=== PATIENT | female | born 1990 | race Two or more races ===

== ENCOUNTER 2020-05-15 13:31 | Inpatient (IN) | payer OTHER ==
--- OUTSIDE RECORDS SUMMARY | 2020-05-15 13:36 | XMS ---
:1990 Author Organization [facility] Support Name Relationship Address Phone UE Unavailable Unavailable Unavailable CRISTEL HELTON SELF / SAME PATIENT [address] [place] [address] Re-disclosure Warning The records that you are about to access may contain information from federally- assisted alcohol or drug abuse programs. If such information is present, then the following federally mandated warning applies: This information has been disclosed to you from records protected by federal confidentiality rules (42 CFR part 2). The federal rules prohibit you from making any further disclosure of this information unless further disclosure is expressly permitted by the written consent of the person to whom it pertains or as otherwise permitted by 42 CFR part 2. A general authorization for the release of medical or other information is NOT sufficient for this purpose. The Federal rules restrict any use of the information to criminally investigate or prosecute any alcohol or drug abuse patient.The records that you are about to access may contain highly sensitive health information, the redisclosure of which is protected by Article 27-F of the [facility] Public Health law. If you continue you may haveaccess to information: Regarding HIV / AIDS; Provided by facilities licensed or operated by the [facility] Office of Mental Health; or Provided by the [facility] Office for People With Developmental Disabilities. If such information is present, then the following [facility] mandated warning applies: This information has been disclosed to you from confidential records which are protected by state law. State law prohibits you from making any further disclosure of this information without the specific written consent of the person to whom it pertains, or as otherwise permitted by law. Any unauthorized further disclosure in violation of state law may result in a fine or detention sentence or both. A general authorization for the release of medical or other information is NOT sufficient authorization for further disclosure. 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
--- NOTE | 2020-05-15 16:11 | BHS.RME ---
Substance Use & Tx History - Substance Use History Alcohol Substance amount: 1-2 pints of vodka, 3-4 beers Frequency of use: Daily Substance route: Oral Date of Last Use: 05/14/20 - Last Treatment Date of last treatment: 1st time Physical/Psych/Mental Status - Behavior General Behavior: Increased activity (restlessness, agitation) Eye Contact: Normal Other Behaviors: Mannerisms - Cooperativeness Cooperativeness: Cooperative - Thinking Thought Processes: Tight, Logical, Goal Directed Thought content: Future oriented - Physical Health Problems Is patient presently having any pain?: No Does patient presently have any injuries (include location): No Does patient currently have a fever: No CIWA Nausea/Vomitin Muscle Tremors: 2 Anxiety: 2 Agitation: 2 Paroxysmal Sweats: 2 Orientation: 0-Oriented Tacttile Disturbances: 1-Very Mild Itch/Numbness Auditory Disturbances: 0-None Visual Disturbances: 0-None Headache: 2-Mild CIWA-Ar Total Score: 13
--- NOTE | 2020-05-15 16:16 | HP ---
CIWA Score Nausea/Vomitin Muscle Tremors: 2 Anxiety: 2 Agitation: 2 Paroxysmal Sweats: 2 Orientation: 0-Oriented Tacttile Disturbances: 1-Very Mild Itch/Numbness Auditory Disturbances: 0-None Visual Disturbances: 0-None Headache: 2-Mild CIWA-Ar Total Score: 13 - Admission Criteria OASAS Guidelines: Admission for Medically Managed Detox: Requires at least one of the followin. CIWA greater than 12 2. Seizures within the past 24 hours 3. Delirium tremens within the past 24 hours 4. Hallucinations within the past 24 hours 5. Acute intervention needed for co occurring medical disorder 6. Acute intervention needed for co occurring psychiatric disorder 7. Severe withdrawal that cannot be handled at a lower level of care (continued vomiting, continued diarrhea, abnormal vital signs) requiring intravenous medication and/or fluids 8. Patient presents the following: CIWA greater than 12 Admission Criteria Met: Admission criteria met Admission ROS S - [facility] Chief Complaint: I need detox, I woke up the other day and I was in the hospital and I don't know how I got there. Allergies/Adverse Reactions: Allergies Allergy/AdvReac Type Severity Reaction Status Date / Time No Known Allergies Allergy Verified 05/15/20 16:12 History of Present Illness: Patient is a 30 year old woman who presents requesting detox because she has been drinking too much. She reports passing out 2 days ago and does not know how she ended up in the hospital, she reports one questionable seizure in the past. Patient has positive THC in her urine, she claims she ate rice crispies yesterday that had marijuana. This is her first time in detox. Exam Limitations: No Limitations - Ebola screening Have you traveled outside of the country in the last 21 days: No Have you had contact with anyone from an Ebola affected area: No Have you been sick,other than usual withdrawal symptoms: No Do you have a fever: No - Review of Systems Constitutional: Loss of Appetite, Changes in sleep, Weakness, Unintentional Wgt. Loss EENT: reports: No Symptoms Reported Respiratory: reports: No Symptoms reported Cardiac: reports: No Symptoms Reported GI: reports: Nausea, Poor Fluid Intake, Vomiting, Abdominal cramping : reports: No Symptoms Reported Musculoskeletal: reports: Back Pain, Joint Pain, Muscle Pain, Muscle Weakness Integumentary: reports: Sweating Neuro: reports: Headache, Numbness, Tremors Endocrine: reports: No Symptoms Reported Hematology: reports: No Symptoms Reported Psychiatric: reports: Anxious, Depressed Other Systems: Reviewed and Negative Patient History - Patient Medical History Hx Anemia: No Hx Asthma: No Hx Chronic Obstructive Pulmonary Disease (COPD): No Hx Cancer: No Hx Cardiac Disorders: No Hx Congestive Heart Failure: No Hx Hypertension: Yes Hx Hypercholesterolemia: No Hx Pacemaker: No HX Cerebrovascular Accident: No Hx Seizures: Yes (r/t intoxication) Hx Dementia: No Hx Diabetes: No Hx Gastrointestinal Disorders: No Hx Liver Disease: No Hx Genitourinary Disorders: No Hx Sexually Transmitted Disorders: No Hx Renal Disease (ESRD): No Hx Thyroid Disease: No Hx Human Immunodeficiency Virus (HIV): No Hx Hepatitis C: No Hx Depression: Yes Hx Suicide Attempt: No Hx Bipolar Disorder: No Hx Schizophrenia: No - Patient Surgical History Past Surgical History: No - PPD History Previous Implant?: Yes Documented Results: Negative w/proof Implanted On Prior R Admission?: No PPD to be Administered?: Yes - Reproductive History Patient is a Female of Child Bearing Age (11 -55 yrs old): Yes Last Menstrual Period: 05/07/20 Patient : No - Smoking Cessation Smoking history: Current every day smoker Have you smoked in the past 12 months: Yes Aproximately how many cigarettes per day: 10 Hx Chewing Tobacco Use: Yes Initiated information on smoking cessation: Yes 'Breaking Loose' booklet given: 05/15/20 Admission Physical Exam B[facility] - Vital Signs Vital Signs: Vital Signs - 24 hr 05/15/20 14:55 Temperature 98.1 F Pulse Rate 84 Respiratory 18 Rate Blood Pressure 150/93 - Physical General Appearance: Yes: No Apparent Distress HEENTM: Yes: Hearing grossly Normal, Normal ENT Inspection, Normocephalic, Normal Voice, ALISE, Pharynx Normal Respiratory: Yes: Chest Non-Tender, Lungs Clear, Normal Breath Sounds, No Respiratory Distress, No Accessory Muscle Use Neck: Yes: No masses,lesions,Nodules, Supple Breast: Yes: Breast Exam Deferred Cardiology: Yes: Regular Rhythm, Regular Rate, S1, S2 Abdominal: Yes: Normal Bowel Sounds, Non Tender, Flat, Soft Genitourinary: Yes: Within Normal Limits Back: Yes: Normal Inspection Musculoskeletal: Yes: full range of Motion, Gait Steady, Pelvis Stable, Muscle Pain, Muscle weakness Neurological: Yes: bias cutter II-XII NML intact, Fully Oriented, Alert, Normal Mood/Affect, Normal Response, Respond to painful stimul Integumentary: Yes: Normal Color Lymphatic: Yes: Within Normal Limits - Diagnostic (1) Alcohol dependence with uncomplicated withdrawal Current Visit: Yes Status: Acute (2) Nicotine dependence with withdrawal Current Visit: Yes Status: Acute Qualifiers: Nicotine product type: cigarettes Qualified Code(s): F17.213 - Nicotine dependence, cigarettes, with withdrawal Cleared for Admission S - Detox or Rehab [facility] Level of Care: Medically Managed Detox Regimen/Protocol: Librium Claeared for Rehab Admission: No Breathalyzer - Breathalyzer Breathalyzer: 0 Urine Drug Screen - Test Device Lot number: [id number] Expiration date: 12/02/21 - Control Is test valid?: Yes - Results Drug screen NEGATIVE: No Urine drug screen results: THC-Marijuana Inpatient Rehab Admission - Rehab Decision to Admit Inpatient rehab admission?: No
[2020-05-15] MEDS ORDERED: ACETAMINOPHEN 325 MG TABLET (FP) PO PRN (16:19)
[2020-05-15] MEDS ORDERED: chlordiazePOXIDE HCL 25 MG CAPSULE PO PRN (16:19)
[2020-05-15] MEDS ORDERED: METHOCARBAMOL 500 MG TABLET PO PRN (16:19)
[2020-05-15] MEDS ORDERED: BISMUTH SUBSALICYLATE 524 MG/30 ML UD PO PRN (16:19)
[2020-05-15] MEDS ORDERED: MAG HYDROX/AL HYDROX/SIMETH 30 ML UNIT-DOSE CUP PO PRN (16:19)
[2020-05-15] MEDS ORDERED: MAGNESIUM HYDROX 2400MG/30ML ORAL SUSPENSION 30 ML CUP PO PRN (16:19)
[2020-05-15] MEDS ORDERED: MAGNESIUM CITRATE 300 ML BOTTLE PO PRN (16:19)
[2020-05-15] MEDS ORDERED: MENTHOL/PHENOL 1 EACH UD MM PRN (16:19)
--- OUTSIDE RECORDS SUMMARY | 2020-05-15 16:39 | XMS ---
:1990 Author Organization [facility] Support Name Relationship Address Phone UE Unavailable Unavailable Unavailable CRISTEL HELTON SELF / SAME PATIENT [phone] [place] [address] Re-disclosure Warning The records that you are [...] is protected by Article 27-F of the [facility] Public Health law. If you continue you may haveaccess to information: Regarding HIV / AIDS; Provided by facilities licensed or operated by the [facility] Office of Mental Health; or Provided by the [facility] Office for People With Developmental Disabilities. If such information is present, then the following [facility] mandated warning applies: This information has [...] law may result in a fine or usp sentence or both. A general authorization for the release of medical or other information is NOT sufficient authorization for further disclosure. 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
[2020-05-15 16:42] VITALS: BMI 21.6
[2020-05-15] MEDS: chlordiazePOXIDE HCL 25 MG CAPSULE PO SCH ×2 (17:46→22:51)
[2020-05-15] MEDS: ACETAMINOPHEN 325 MG TABLET (FP) PO PRN (21:29)
[2020-05-15] MEDS ORDERED: MELATONIN 5 MG TABLETS PO SCH (22:00)
[2020-05-15] MEDS ORDERED: METOPROLOL TARTRATE 25 MG TABLET (FP) PO ONE (22:37)
--- NOTE | 2020-05-15 22:39 | PN ---
[facility] Progress Note Note: called by nursing for pt re : elevated BP Vital Signs - 24 hr 05/15/20 05/15/20 05/15/20 14:55 16:35 17:29 Temperature 98.1 F 97.1 F L 96.9 F L Pulse Rate 84 91 H 80 Respiratory 18 20 18 Rate Blood Pressure 150/93 161/104 H 152/105 H O2 Sat by Pulse 98 Oximetry (%) P : metoprolol 25 mg x once
[2020-05-15] MEDS: THIAMINE HCL 100 MG TABLET (FP) PO SCH (22:51)
[2020-05-16] MEDS: chlordiazePOXIDE HCL 25 MG CAPSULE PO SCH ×4 (05:57→22:35)
[2020-05-16] MEDS: IBUPROFEN 400 MG TABLET (FP) PO PRN (09:16)
[2020-05-16] MEDS: NICOTINE 7 MG/24 HOURS TOPICAL PATCH TD SCH (10:26)
[2020-05-16 11:22] LABS: HEMATOCRIT 36.9 % (32.4-45.2); HEMOGLOBIN 12.2 GM/dL (10.7-15.3); MCH 31.3 pg (25.7-33.7); MCHC 33.2 g/dl (32.0-36.0); MEAN CELL VOLUME 94.3 fl (80-96); MEAN PLT VOLUME 9.1 fl (7.5-11.1); PLATELET COUNT 212 K/MM3 (134-434); RBC 3.91 M/mm3 (3.60-5.2); RDW 14.2 % (11.6-15.6); WHITE BLOOD COUNT 5.4 K/mm3 (4.0-10.0)
[2020-05-16 11:23] LABS: ALBUMIN 3.2 g/dl (3.4-5.0); CALCIUM 8.3 mg/dL (8.5-10.1); POTASSIUM 3.5 mmol/L (3.5-5.1)
[2020-05-16 11:29] LABS: BILIRUBIN,TOTAL 1.5 mg/dL (0.2-1); BLOOD UREA NITROGEN 15.1 mg/dL (7-18); CREATININE 0.7 mg/dL (0.55-1.3); TOT PROT 5.9 g/dl (6.4-8.2)
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
[2020-05-16] MEDS: hydrOXYzine PAMOATE 25 MG CAPSULE (FP) PO PRN (12:58)
[2020-05-16] MEDS: PRENATAL VITAMINS W/ FOLIC ACID TABLET (FP) PO SCH (13:38)
[2020-05-16] MEDS: ONDANSETRON *ODT* 4 MG TABLET SL PRN (17:39)
--- NOTE | 2020-05-16 17:48 | PN ---
[facility] CIWA - CIWA Score Nausea/Vomitin-Mild Nausea/No Vomiting Muscle Tremors: 2 Anxiety: 3 Agitation: 2 Paroxysmal Sweats: 3 Orientation: 0-Oriented Tacttile Disturbances: 0-None Auditory Disturbances: 0-None Visual Disturbances: 0-None Headache: 0-None Present CIWA-Ar Total Score: 11 [facility] Progress Note (SOAP) Subjective: Mild headache, chills, vomited once after breakfast this morning Objective: 05/16/20 17:43 Last Vital Signs Temp Pulse Resp BP Pulse Ox 97.5 F L 79 17 146/93 100 05/16/20 12:55 05/16/20 12:55 05/16/20 12:55 05/16/20 12:55 05/16/20 09:04 Elevated b/p: has HTN, not on med Laboratory Tests 05/15/20 05/16/20 05/16/20 19:51 07:30 07:30 WBC 5.4 RBC 3.91 Hgb 12.2 Hct 36.9 MCV 94.3 MCH 31.3 MCHC 33.2 RDW 14.2 Plt Count 212 MPV 9.1 Sodium Potassium Chloride Carbon Dioxide Anion Gap BUN Creatinine Est GFR (CKD-EPI)AfAm Est GFR (CKD-EPI)NonAf Random Glucose Calcium Total Bilirubin AST ALT Alkaline Phosphatase Total Protein Albumin Syphilis Serology Non-reactive COVID-19 ([facility]) Not detected 05/16/20 07:30 WBC RBC Hgb Hct MCV MCH MCHC RDW Plt Count MPV Sodium 140 Potassium 3.5 Chloride 106 Carbon Dioxide 29 Anion Gap 4 L BUN 15.1 Creatinine 0.7 Est GFR (CKD-EPI)AfAm 133.81 Est GFR (CKD-EPI)NonAf 115.45 Random Glucose 78 Calcium 8.3 L Total Bilirubin 1.5 H AST 18 ALT 21 Alkaline Phosphatase 44 L Total Protein 5.9 L Albumin 3.2 L Syphilis Serology COVID-19 ([facility]) Labs reviewed: total bilirubin 1.5 (high), calcium 8.3 (low), albumin 3.2 (low), total protein low Assessment: 05/16/20 17:46 Withdrawal sxs Noted with elevated b/p, elevated total bilirubin, hypocalcemia, and malnutrition Plan: Continue detox Encourage PO water intake Elevated b/p: start norvasc 5mg PO daily, first dose now, monitor b/p Elevated total bilirubin: repeat total bilirubin level Hypocalcemia: start calcium carbonate 650mg PO bid x 3 days Malnutrition: start low sodium diet and ensure supplement
[2020-05-16] MEDS ORDERED: amLODIPine BESYLATE 5 MG TABLET (FP) PO ONE (18:00)
[2020-05-16] MEDS: CALCIUM CARBONATE 650 MG TABLET PO SCH (22:34)
[2020-05-16] MEDS: SUVOREXANT 10 MG TABLET PO PRN (23:09)
[2020-05-17] MEDS: chlordiazePOXIDE HCL 25 MG CAPSULE PO SCH ×4 (05:57→22:15)
[2020-05-17] MEDS: hydrOXYzine PAMOATE 25 MG CAPSULE (FP) PO PRN ×4 (05:58→22:21)
[2020-05-17] MEDS: amLODIPine BESYLATE 5 MG TABLET (FP) PO SCH (10:35)
[2020-05-17] MEDS: CALCIUM CARBONATE 650 MG TABLET PO SCH ×2 (10:36→22:15)
[2020-05-17] MEDS: PRENATAL VITAMINS W/ FOLIC ACID TABLET (FP) PO SCH (10:36)
[2020-05-17] MEDS: NICOTINE 7 MG/24 HOURS TOPICAL PATCH TD SCH (10:36)
[2020-05-17] MEDS: ACETAMINOPHEN 325 MG TABLET (FP) PO PRN (10:39)
--- NOTE | 2020-05-17 13:38 | PN ---
[facility] CIWA - CIWA Score Nausea/Vomitin-No Nausea/No Vomiting Muscle Tremors: 3 Anxiety: 3 Agitation: 3 Paroxysmal Sweats: 3 Orientation: 0-Oriented Tacttile Disturbances: 0-None Auditory Disturbances: 0-None Visual Disturbances: 0-None Headache: 0-None Present CIWA-Ar Total Score: 12 S Progress Note (SOAP) Subjective: I want to make sure I dont have a UTI sweats shakes interrupted sleep body aches tired Objective: 05/17/20 13:33 Vital Signs Temperature 97.3 F L 05/17/20 12:24 Pulse Rate 84 05/17/20 12:24 Respiratory Rate 18 05/17/20 12:24 Blood Pressure 145/99 05/17/20 12:24 O2 Sat by Pulse Oximetry (%) 98 05/17/20 12:24 Laboratory Tests 05/15/20 05/16/20 05/16/20 19:51 07:30 07:30 WBC 5.4 RBC 3.91 Hgb 12.2 Hct 36.9 MCV 94.3 MCH 31.3 MCHC 33.2 RDW 14.2 Plt Count 212 MPV 9.1 Sodium Potassium Chloride Carbon Dioxide Anion Gap BUN Creatinine Est GFR (CKD-EPI)AfAm Est GFR (CKD-EPI)NonAf Random Glucose Calcium Total Bilirubin AST ALT Alkaline Phosphatase Total Protein Albumin Syphilis Serology Non-reactive COVID-19 ([facility]) Not detected 05/16/20 05/17/20 07:30 08:30 WBC RBC Hgb Hct MCV MCH MCHC RDW Plt Count MPV Sodium 140 Potassium 3.5 Chloride 106 Carbon Dioxide 29 Anion Gap 4 L BUN 15.1 Creatinine 0.7 Est GFR (CKD-EPI)AfAm 133.81 Est GFR (CKD-EPI)NonAf 115.45 Random Glucose 78 Calcium 8.3 L Total Bilirubin 1.5 H 0.7 AST 18 ALT 21 Alkaline Phosphatase 44 L Total Protein 5.9 L Albumin 3.2 L Syphilis Serology COVID-19 ([facility]) labs noted ambulating no acute distress pt was made aware about s/s of UTI; however pt wants her urine analysed. Assessment: 05/17/20 13:38 withdrawal sx Plan: continue detox u/a with culture ordered increase fluids
[2020-05-17] MEDS: ONDANSETRON *ODT* 4 MG TABLET SL PRN (17:55)
[2020-05-17 20:09] LABS: PH,URINE 8.5 (5.0-8.0); URINE APPEARANCE CLEAR; URINE BILIRUBIN NEGATIVE (NEGATIVE); URINE COLOR YELLOW; URINE GLUCOSE (UA) NEGATIVE (NEGATIVE); URINE KETONE NEGATIVE (NEGATIVE); URINE LEUK ESTERASE NEGATIVE (NEGATIVE); URINE NITRITE NEGATIVE (NEGATIVE); URINE PROTEIN NEGATIVE (NEGATIVE); URINE UROBILINOGEN 0.2 mg/dL (0.2-1.0)
[2020-05-17] MEDS: THIAMINE HCL 100 MG TABLET (FP) PO SCH ×2 (22:15→22:22)
[2020-05-17] MEDS: SUVOREXANT 10 MG TABLET PO PRN (22:20)
[2020-05-18] MEDS ORDERED: chlordiazePOXIDE HCL 10 MG CAPSULE PO PRN
[2020-05-18] MEDS: chlordiazePOXIDE HCL 10 MG CAPSULE PO SCH ×4 (06:51→22:37)
[2020-05-18] MEDS: hydrOXYzine PAMOATE 25 MG CAPSULE (FP) PO PRN (06:53)
[2020-05-18] MEDS: NICOTINE 7 MG/24 HOURS TOPICAL PATCH TD SCH (10:18)
[2020-05-18] MEDS: CALCIUM CARBONATE 650 MG TABLET PO SCH ×2 (10:19→22:38)
[2020-05-18] MEDS: amLODIPine BESYLATE 5 MG TABLET (FP) PO SCH (10:20)
[2020-05-18] MEDS: PRENATAL VITAMINS W/ FOLIC ACID TABLET (FP) PO SCH (10:20)
--- NOTE | 2020-05-18 10:42 | PN ---
[facility] Progress Note Note: Patient reports feeling anxious and sleeping poorly despite taking Vistaril 25 mg po Q 4hrs prn for anxiety and Belsomra 10 mg po HS prn for insomnia. Will increase Vistaril dose to 50 mg po Q 4hrs prn and Belsomra to 15 mg/hs prn
--- NOTE | 2020-05-18 12:28 | PN ---
[facility] CIWA - CIWA Score Nausea/Vomitin-No Nausea/No Vomiting Muscle Tremors: 3 Anxiety: 2 Agitation: 2 Paroxysmal Sweats: 2 Orientation: 0-Oriented Tacttile Disturbances: 0-None Auditory Disturbances: 0-None Visual Disturbances: 0-None Headache: 0-None Present CIWA-Ar Total Score: 9 S Progress Note (SOAP) Subjective: sweats tired interrupted sleep Objective: 05/18/20 12:27 Vital Signs Temperature 98.1 F 05/18/20 08:35 Pulse Rate 77 05/18/20 08:35 Respiratory Rate 18 05/18/20 08:35 Blood Pressure 108/62 05/18/20 08:35 O2 Sat by Pulse Oximetry (%) 97 05/18/20 08:35 Laboratory Tests 05/15/20 05/16/20 05/16/20 19:51 07:30 07:30 WBC 5.4 RBC 3.91 Hgb 12.2 Hct 36.9 MCV 94.3 MCH 31.3 MCHC 33.2 RDW 14.2 Plt Count 212 MPV 9.1 Sodium Potassium Chloride Carbon Dioxide Anion Gap BUN Creatinine Est GFR (CKD-EPI)AfAm Est GFR (CKD-EPI)NonAf Random Glucose Calcium Total Bilirubin AST ALT Alkaline Phosphatase Total Protein Albumin Urine Color Urine Appearance Urine pH Ur Specific [place] Urine Protein Urine Glucose (UA) Urine Ketones Urine Blood Urine Nitrite Urine Bilirubin Urine Urobilinogen Ur Leukocyte Esterase Syphilis Serology Non-reactive COVID-19 ([facility]) Not detected 05/16/20 05/17/20 05/17/20 07:30 08:30 15:25 WBC RBC Hgb Hct MCV MCH MCHC RDW Plt Count MPV Sodium 140 Potassium 3.5 Chloride 106 Carbon Dioxide 29 Anion Gap 4 L BUN 15.1 Creatinine 0.7 Est GFR (CKD-EPI)AfAm 133.81 Est GFR (CKD-EPI)NonAf 115.45 Random Glucose 78 Calcium 8.3 L Total Bilirubin 1.5 H 0.7 AST 18 ALT 21 Alkaline Phosphatase 44 L Total Protein 5.9 L Albumin 3.2 L Urine Color Yellow Urine Appearance Clear Urine pH 8.5 H Ur Specific [place] 1.007 L Urine Protein Negative Urine Glucose (UA) Negative Urine Ketones Negative Urine Blood Negative Urine Nitrite Negative Urine Bilirubin Negative Urine Urobilinogen 0.2 Ur Leukocyte Esterase Negative Syphilis Serology COVID-19 ([facility]) u/a culture pending labs noted no s/s u/a infection noted aaox3 ambulating no acute distress Assessment: 05/18/20 12:27 withdrawals Plan: continue detox increase fluids pending u/a culture
[2020-05-18] MEDS: ONDANSETRON *ODT* 4 MG TABLET SL PRN ×2 (12:59→17:42)
[2020-05-18] MEDS: ACETAMINOPHEN 325 MG TABLET (FP) PO PRN (14:05)
[2020-05-18] MEDS: hydrOXYzine PAMOATE 50 MG CAPSULE (FP) PO PRN ×2 (14:05→17:42)
[2020-05-18] MEDS ORDERED: SUVOREXANT 15 MG TABLET PO PRN (22:00)
[2020-05-18] MEDS: THIAMINE HCL 100 MG TABLET (FP) PO SCH (22:38)
[2020-05-18] MEDS: NICOTINE POLACRILEX 2 MG GUM BUC PRN (22:58)
[2020-05-19] MEDS: chlordiazePOXIDE HCL 10 MG CAPSULE PO SCH ×2 (06:19→18:13)
[2020-05-19] MEDS: NICOTINE POLACRILEX 2 MG GUM BUC PRN ×2 (06:20→10:55)
[2020-05-19] MEDS: IBUPROFEN 400 MG TABLET (FP) PO PRN (06:24)
[2020-05-19] MEDS: NICOTINE 7 MG/24 HOURS TOPICAL PATCH TD SCH (10:24)
[2020-05-19] MEDS: amLODIPine BESYLATE 5 MG TABLET (FP) PO SCH (10:25)
[2020-05-19] MEDS: PRENATAL VITAMINS W/ FOLIC ACID TABLET (FP) PO SCH (10:25)
[2020-05-19] MEDS: CALCIUM CARBONATE 650 MG TABLET PO SCH (10:25)
--- NOTE | 2020-05-19 13:29 | PN ---
[facility] CIWA - CIWA Score Nausea/Vomitin-No Nausea/No Vomiting Muscle Tremors: 1-None Visible, but [place] Anxiety: 1-Mildly Anxious Agitation: 1-Slight > Activity Paroxysmal Sweats: No Perspiration Orientation: 0-Oriented Tacttile Disturbances: 0-None Auditory Disturbances: 0-None Visual Disturbances: 0-None Headache: 0-None Present CIWA-Ar Total Score: 3 [facility] Progress Note (SOAP) Subjective: sweats anxiety Objective: 05/19/20 13:29 Vital Signs Temperature 98.1 F 05/19/20 08:37 Pulse Rate 94 H 05/19/20 08:37 Respiratory Rate 16 05/19/20 08:37 Blood Pressure 124/76 05/19/20 08:37 O2 Sat by Pulse Oximetry (%) 99 05/19/20 08:37 aaox3 ambulating no acute distress Assessment: 05/19/20 13:29 withdrawals Plan: continue detox d/c in am
[2020-05-19] MEDS: ACETAMINOPHEN 325 MG TABLET (FP) PO PRN (18:13)
[2020-05-19] MEDS: hydrOXYzine PAMOATE 50 MG CAPSULE (FP) PO PRN (18:14)
[2020-05-19 20:16] VITALS: BP 118/57; PULSE 120; TEMP 96.6
--- NOTE | 2020-05-20 00:09 | DS ---
[facility] Detox Discharge Summary Admission Date: 05/15/20 Discharge Date: 05/19/20 - History Additional Comments: Patient is leaving against medical advice secondary to a verbal altercation with T. A. in room 663A. Patient reports that she has been constantly provoked by T. A. and wants to leave now. Patient was offered a transfer to another floor but she refused insisting that she has to leave now. Risk and consequences of her actions reinforced. Patient verbalized understanding of instructions, signed the AMA form and left the floor accompanied by a security operations center analyst. He is alert and oriented x 3, not in acute distress, ambulates independently and abnormal vital signs noted. Patient reports that she will follow up with her PCP and hardboard press operator. She is to schedule an appointment as soon as possible. She has no home medications and does not need any prescriptions. Pertinent Past History: Alcohol dependence Nicotine dependence Alcohol related seizures Depression Alcohol induced mood disorder Alcohol induced sleep disorder - Physical Exam Results Vital Signs: Vital Signs Temperature 96.6 F L 05/19/20 17:30 Pulse Rate 120 H 05/19/20 17:30 Respiratory Rate 18 05/19/20 17:30 Blood Pressure 118/57 L 05/19/20 17:30 O2 Sat by Pulse Oximetry (%) 99 05/19/20 17:30 Laboratory Last Values WBC 5.4 K/mm3 (4.0-10.0) 05/16/20 07:30 RBC 3.91 M/mm3 (3.60-5.2) 05/16/20 07:30 Hgb 12.2 GM/dL (10.7-15.3) 05/16/20 07:30 Hct 36.9 % (32.4-45.2) 05/16/20 07:30 MCV 94.3 fl (80-96) 05/16/20 07:30 MCH 31.3 pg (25.7-33.7) 05/16/20 07:30 MCHC 33.2 g/dl (32.0-36.0) 05/16/20 07:30 RDW 14.2 % (11.6-15.6) 05/16/20 07:30 Plt Count 212 K/MM3 (134-434) 05/16/20 07:30 MPV 9.1 fl (7.5-11.1) 05/16/20 07:30 Sodium 140 mmol/L (136-145) 05/16/20 07:30 Potassium 3.5 mmol/L (3.5-5.1) 05/16/20 07:30 Chloride 106 mmol/L (98-107) 05/16/20 07:30 Carbon Dioxide 29 mmol/L (21-32) 05/16/20 07:30 Anion Gap 4 MMOL/L (8-16) L 05/16/20 07:30 BUN 15.1 mg/dL (7-18) 05/16/20 07:30 Creatinine 0.7 mg/dL (0.55-1.3) 05/16/20 07:30 Est GFR (CKD-EPI)AfAm 133.81 05/16/20 07:30 Est GFR (CKD-EPI)NonAf 115.45 05/16/20 07:30 Random Glucose 78 mg/dL (74-106) 05/16/20 07:30 Calcium 8.3 mg/dL (8.5-10.1) L 05/16/20 07:30 Total Bilirubin 0.7 mg/dL (0.2-1) 05/17/20 08:30 AST 18 U/L (15-37) 05/16/20 07:30 ALT 21 U/L (13-61) 05/16/20 07:30 Alkaline Phosphatase 44 U/L (45-117) L 05/16/20 07:30 Total Protein 5.9 g/dl (6.4-8.2) L 05/16/20 07:30 Albumin 3.2 g/dl (3.4-5.0) L 05/16/20 07:30 Urine Color Yellow 05/17/20 15:25 Urine Appearance Clear 05/17/20 15:25 Urine pH 8.5 (5.0-8.0) H 05/17/20 15:25 Ur Specific [place] 1.007 (1.010-1.035) L 05/17/20 15:25 Urine Protein Negative (NEGATIVE) 05/17/20 15:25 Urine Glucose (UA) Negative (NEGATIVE) 05/17/20 15:25 Urine Ketones Negative (NEGATIVE) 05/17/20 15:25 Urine Blood Negative (NEGATIVE) 05/17/20 15:25 Urine Nitrite Negative (NEGATIVE) 05/17/20 15:25 Urine Bilirubin Negative (NEGATIVE) 05/17/20 15:25 Urine Urobilinogen 0.2 mg/dL (0.2-1.0) 05/17/20 15:25 Ur Leukocyte Esterase Negative (NEGATIVE) 05/17/20 15:25 Syphilis Serology Non-reactive (NONREACTIVE) 05/16/20 07:30 COVID-19 ([facility]) Not detected (Not Detected) 05/15/20 19:51 Pertinent Admission Physical Exam Findings: Alcohol withdrawal symptoms - Medication Discharge Medications: Ambulatory Orders NK [No Known Home Medication] 05/15/20 - Diagnosis (1) Alcohol dependence with uncomplicated withdrawal Status: Chronic (2) Alcohol-induced mood disorder Status: Chronic (3) Alcohol-induced sleep disorder Status: Chronic (4) Alcohol related seizure Status: Chronic (5) Depressive disorder Status: Chronic (6) Nicotine dependence with withdrawal Status: Chronic Qualifiers: Nicotine product type: cigarettes Qualified Code(s): F17.213 - Nicotine dependence, cigarettes, with withdrawal (7) PTSD (post-traumatic stress disorder) Status: Chronic - AMA Did Patient Leave Against Medical Advice: Yes
[2020-05-20] MEDS ORDERED: chlordiazePOXIDE HCL 10 MG CAPSULE PO ONE (05:00)
== END 2020-05-19 22:35 | disposition home or self-care (01) | DRG 775 ==
LOC: YASAS 13:31 → Y6N 16:35
PROVIDERS: ADMIT Allergy & Immunology; ATTEND Allergy & Immunology
PROC: HZ2ZZZZ Detoxification Services for Substance Abuse Treatment (ICD-10-PCS; principal; 2020-05-15)
DX: F10.230 Alcohol dependence with withdrawal, uncomplicated (principal); F17.213 Nicotine dependence, cigarettes, with withdrawal; F10.24 Alcohol dependence with alcohol-induced mood disorder; F10.282 Alcohol dependence with alcohol-induced sleep disorder; F32.9 Major depressive disorder, single episode, unspecified; G40.509 Epileptic seizures related to external causes, not intractable, without status epilepticus; I10 Essential (primary) hypertension; E46 Unspecified protein-calorie malnutrition; E88.09 Other disorders of plasma-protein metabolism, not elsewhere classified; E83.51 Hypocalcemia; E80.6 Other disorders of bilirubin metabolism; Z68.22 Body mass index [BMI] 22.0-22.9, adult; Z62.810 Personal history of physical and sexual abuse in childhood; Z91.410 Personal history of adult physical and sexual abuse
CPT/HCPCS: 36415; 80053; 81003; 82247; 85027; 86780; 87086; Q0162; U0003

== ENCOUNTER 2021-12-21 08:40 | Inpatient (IN) | payer OTHER ==
[2021-12-21 09:18] VITALS: BMI 23.6
[2021-12-21] MEDS ORDERED: MAGNESIUM HYDROX 2400MG/30ML ORAL SUSPENSION 30 ML CUP PO PRN (09:37)
[2021-12-21] MEDS ORDERED: IBUPROFEN 400 MG TABLET (FP) PO PRN (09:37)
[2021-12-21] MEDS ORDERED: DICYCLOMINE HCL 10 MG CAPSULE PO PRN (09:37)
[2021-12-21] MEDS ORDERED: LOPERAMIDE HCL 2 MG CAPSULE PO PRN (09:37)
[2021-12-21] MEDS ORDERED: ACETAMINOPHEN 325 MG TABLET (FP) PO PRN (09:37)
[2021-12-21] MEDS ORDERED: BENZOCAINE/MENTHOL (CHLORASEPTIC ) LOZENGE MM PRN (09:37)
[2021-12-21] MEDS ORDERED: MAG HYDROX/AL HYDROX/SIMETH 30 ML UNIT-DOSE CUP PO PRN (09:37)
[2021-12-21] MEDS ORDERED: MAGNESIUM CITRATE 300 ML BOTTLE PO PRN (09:37)
[2021-12-21] MEDS ORDERED: BISMUTH SUBSALICYLATE 262 MG/15 ML BTL PO PRN (09:37)
[2021-12-21] MEDS: hydrOXYzine PAMOATE 25 MG CAPSULE (FP) PO SCH ×3 (11:00→23:02)
[2021-12-21] MEDS: chlordiazePOXIDE HCL 25 MG CAPSULE PO SCH ×2 (11:20→23:02)
[2021-12-21 14:08] LABS: HEMATOCRIT 34.5 % (32.4-45.2); HEMOGLOBIN 11.3 GM/dL (10.7-15.3); MCH 30.3 pg (25.7-33.7); MCHC 32.7 g/dl (32.0-36.0); MEAN CELL VOLUME 92.7 fl (80-96); MEAN PLT VOLUME 8.4 fl (7.5-11.1); PLATELET COUNT 274 10^3/uL (134-434); RBC 3.73 M/mm3 (3.60-5.2); RDW 13.7 % (11.6-15.6); WHITE BLOOD COUNT 4.8 K/mm3 (4.0-10.0)
[2021-12-21 14:32] LABS: BILIRUBIN,TOTAL 0.2 mg/dL (0.2-1); TOT PROT 6.7 g/dl (6.4-8.2)
[2021-12-21 14:36] LABS: ALBUMIN 3.6 g/dl (3.4-5.0); BLOOD UREA NITROGEN 13.1 mg/dL (7-18); CALCIUM 8.9 mg/dL (8.5-10.1); CREATININE 0.7 mg/dL (0.55-1.3)
[2021-12-21] MEDS: THIAMINE HCL 100 MG TABLET (FP) PO SCH (23:01)
[2021-12-21] MEDS: MELATONIN 5 MG TABLETS PO SCH (23:01)
[2021-12-22] MEDS: chlordiazePOXIDE HCL 25 MG CAPSULE PO SCH ×4 (07:00→17:40)
[2021-12-22] MEDS: hydrOXYzine PAMOATE 25 MG CAPSULE (FP) PO SCH ×5 (07:00→17:42)
[2021-12-22] MEDS ORDERED: chlordiazePOXIDE HCL 25 MG CAPSULE ONE ×2 (07:59→10:06)
[2021-12-22] MEDS ORDERED: hydrOXYzine PAMOATE 25 MG CAPSULE (FP) PO ONE ×2 (08:01→10:07)
[2021-12-22] MEDS: PRENATAL VITAMINS W/ FOLIC ACID TABLET (FP) PO SCH ×2 (09:14→12:49)
[2021-12-22] MEDS: NICOTINE 14 MG/24 HOURS TOPICAL PATCH TD SCH ×2 (09:20→10:16)
[2021-12-22] MEDS ORDERED: NICOTINE 14 MG/24 HOURS TOPICAL PATCH TD ONE (10:07)
[2021-12-22] MEDS: chlordiazePOXIDE HCL 25 MG CAPSULE PO PRN (12:46)
[2021-12-22] MEDS: ACETAMINOPHEN 325 MG TABLET (FP) PO PRN (12:47)
[2021-12-22] MEDS ORDERED: cloNIDine HCL 0.1 MG TABLET PO ONE (13:45)
[2021-12-23] MEDS: chlordiazePOXIDE HCL 25 MG CAPSULE PO SCH ×5 (00:08→22:24)
[2021-12-23] MEDS: MELATONIN 5 MG TABLETS PO SCH ×2 (00:08→22:21)
[2021-12-23] MEDS: THIAMINE HCL 100 MG TABLET (FP) PO SCH ×2 (00:09→22:22)
[2021-12-23] MEDS: QUEtiapine FUMARATE 100 MG TABLET (FP) PO SCH ×2 (00:09→22:22)
[2021-12-23] MEDS: hydrOXYzine PAMOATE 25 MG CAPSULE (FP) PO SCH ×6 (00:09→22:21)
[2021-12-23] MEDS: METHOCARBAMOL 500 MG TABLET PO PRN (02:39)
[2021-12-23] MEDS: chlordiazePOXIDE HCL 25 MG CAPSULE PO PRN (02:40)
[2021-12-23] MEDS ORDERED: QUEtiapine FUMARATE 100 MG TABLET (FP) PO ONE (09:56)
[2021-12-23] MEDS: PRENATAL VITAMINS W/ FOLIC ACID TABLET (FP) PO SCH (10:45)
[2021-12-23] MEDS: NICOTINE 10 MG CARTRIDGE (INHALER) IH PRN (10:47)
[2021-12-23] MEDS: ONDANSETRON *ODT* 4 MG TABLET SL PRN (10:48)
[2021-12-23] MEDS: NICOTINE 14 MG/24 HOURS TOPICAL PATCH TD SCH (10:51)
[2021-12-24] MEDS ORDERED: chlordiazePOXIDE HCL 10 MG CAPSULE PO PRN
[2021-12-24] MEDS: chlordiazePOXIDE HCL 10 MG CAPSULE PO SCH ×4 (05:43→22:13)
[2021-12-24] MEDS: hydrOXYzine PAMOATE 25 MG CAPSULE (FP) PO SCH ×2 (05:44→10:10)
[2021-12-24] MEDS: PRENATAL VITAMINS W/ FOLIC ACID TABLET (FP) PO SCH (10:10)
[2021-12-24] MEDS: METHOCARBAMOL 500 MG TABLET PO PRN ×2 (10:10→22:13)
[2021-12-24] MEDS: NICOTINE 14 MG/24 HOURS TOPICAL PATCH TD SCH (10:11)
[2021-12-24] MEDS: NICOTINE 10 MG CARTRIDGE (INHALER) IH PRN ×2 (15:35→22:15)
[2021-12-24] MEDS: ONDANSETRON *ODT* 4 MG TABLET SL PRN (17:41)
[2021-12-24] MEDS: MELATONIN 5 MG TABLETS PO SCH (22:12)
[2021-12-24] MEDS: QUEtiapine FUMARATE 100 MG TABLET (FP) PO SCH (22:13)
[2021-12-24] MEDS: hydrOXYzine PAMOATE 25 MG CAPSULE (FP) PO PRN (22:13)
[2021-12-24] MEDS: THIAMINE HCL 100 MG TABLET (FP) PO SCH (22:13)
[2021-12-25] MEDS: chlordiazePOXIDE HCL 10 MG CAPSULE PO SCH ×2 (05:33→18:02)
[2021-12-25] MEDS: hydrOXYzine PAMOATE 25 MG CAPSULE (FP) PO PRN ×4 (05:34→22:20)
[2021-12-25] MEDS: NICOTINE 14 MG/24 HOURS TOPICAL PATCH TD SCH (10:52)
[2021-12-25] MEDS: PRENATAL VITAMINS W/ FOLIC ACID TABLET (FP) PO SCH (10:53)
[2021-12-25] MEDS: METHOCARBAMOL 500 MG TABLET PO PRN ×2 (10:53→18:02)
[2021-12-25] MEDS: NICOTINE 10 MG CARTRIDGE (INHALER) IH PRN ×2 (13:22→22:28)
[2021-12-25] MEDS: MELATONIN 5 MG TABLETS PO SCH (22:20)
[2021-12-25] MEDS: THIAMINE HCL 100 MG TABLET (FP) PO SCH (22:20)
[2021-12-25] MEDS: QUEtiapine FUMARATE 100 MG TABLET (FP) PO SCH (22:21)
[2021-12-25] MEDS: ACETAMINOPHEN 325 MG TABLET (FP) PO PRN (22:24)
[2021-12-26] MEDS ORDERED: chlordiazePOXIDE HCL 10 MG CAPSULE PO ONE (05:00)
[2021-12-26 09:23] VITALS: BP 117/68; PULSE 102; TEMP 96.8
[2021-12-26] MEDS: PRENATAL VITAMINS W/ FOLIC ACID TABLET (FP) PO SCH (10:17)
[2021-12-26] MEDS: NICOTINE 14 MG/24 HOURS TOPICAL PATCH TD SCH (10:18)
[2021-12-26] MEDS: NICOTINE 10 MG CARTRIDGE (INHALER) IH PRN (10:19)
== END 2021-12-26 10:36 | disposition home or self-care (01) | DRG 774 ==
LOC: YASAS 08:40 → Y6N 12-22 11:20
PROVIDERS: ADMIT Allergy & Immunology; ATTEND Allergy & Immunology
PROC: HZ2ZZZZ Detoxification Services for Substance Abuse Treatment (ICD-10-PCS; principal; 2021-12-22)
DX: F10.230 Alcohol dependence with withdrawal, uncomplicated (principal); F14.20 Cocaine dependence, uncomplicated; F17.210 Nicotine dependence, cigarettes, uncomplicated; F19.280 Other psychoactive substance dependence with psychoactive substance-induced anxiety disorder; F19.24 Other psychoactive substance dependence with psychoactive substance-induced mood disorder; F41.9 Anxiety disorder, unspecified; F90.9 Attention-deficit hyperactivity disorder, unspecified type; F43.10 Post-traumatic stress disorder, unspecified; Z62.810 Personal history of physical and sexual abuse in childhood; Z91.410 Personal history of adult physical and sexual abuse; Z86.69 Personal history of other diseases of the nervous system and sense organs
CPT/HCPCS: 36415; 80053; 81025; 85027; 86780; C9803-CS; J0735; Q0162; U0003; U0005